=== PATIENT | female | born 1980 | race African-American/Black ===

== ENCOUNTER 2019-06-17 18:54 | Emergency (ER) | payer SELFPAY ==
[2019-06-18 05:01] LABS: ALBUMIN 3.9 g/dL (3.2-5.0); ALKALINE PHOSPHATASE 33 u/l (38-126); ANION GAP 12 (6-22 (CALC)); BILIRUBIN, TOTAL 0.3 mg/dL (0.0-1.4); BUN 8 mg/dL (7-17); BUN/CREATININE RATIO 12 (12-20 (CALC)); CARBON DIOXIDE 25 mmol/l (22-30); CHLORIDE 105 mmol/l (95-108); CREATININE 0.7 mg/dL (0.5-1.0); GFR > 60 ML/MIN (>=60 (CALC)); GFR FOR AFR.AMER. > 60 ML/MIN (>=60 (CALC)); MAGNESIUM 1.8 mg/dL (1.6-2.3); POTASSIUM 4.3 mmol/l (3.5-5.1); SGOT/AST 17 u/l (14-36); SODIUM 137 mmol/l (137-146); TOTAL PROTEIN 6.9 g/dL (6.3-8.2); TSH, 3RD GENERATION 1.11 uIU/mL (0.47 - 4.68)
[2019-06-18 05:24] LABS: HEMATOCRIT 36.5 % (37.0-47.0); HEMOGLOBIN 11.5 g/dl (12.0-16.0); IMMATURE GRANULOCYTES 0.2 % (0.0-5.0); MEAN CELL VOLUME 82.2 fL CALC (80.0-100.0); MEAN CORPUSCULAR HGB 25.9 pG CALC (26.0-32.0); MEAN CORPUSCULAR HGB CONC 31.5 g/L CALC (32.0-36.0); NEUT# 2.06 thou/uL (2.00-7.15); RED BLOOD COUNT 4.44 mill/uL (4.20-5.60); RED CELL DISTRI WIDTH 15.7 % (11.5-15.5)
[2019-06-18 05:54] LABS: URINE BILIRUBIN - DIPSTICK NEGATIVE (NEGATIVE); URINE BLOOD DIPSTICK LARGE (NEGATIVE); URINE COLOR YELLOW; URINE GLUCOSE - DIPSTICK NEGATIVE (NEGATIVE); URINE KETONE Negative (NEGATIVE); URINE LEUK ESTERASE NEGATIVE (NEGATIVE); URINE NITRITE - DIPSTICK NEGATIVE (Negative); URINE PROTEIN - DIPSTICK NEGATIVE (NEG-TRACE); URINE UROBILINOGEN - DIPSTICK 0.2 E.U./dL (0.2); URINE WBC 0-2 WBC/hpf (0-5)
[2019-06-18 05:55] LABS: URINE EPITHELIAL CELLS FEW EPI/hpf (0-FEW)
== END 2019-06-17 21:24 | disposition home or self-care (01) | DRG 880 ==
LOC: ED 19:43
PROVIDERS: Emergency Medicine
DX: F41.9 Anxiety disorder, unspecified (principal)

== ENCOUNTER 2020-07-26 11:05 | Emergency (ER) | payer MEDICAID ==
[~2020-07-26] VITALS: Ht 170.2 cm; Wt 110.0 kg
[2020-07-26] MEDS ORDERED: PRENATA3 PO (11:33)
[2020-07-26] MEDS ORDERED: FERRAPLUS 90 PO (11:34)
[2020-07-26 12:11] LABS: HEMATOCRIT 35.6 % (37.0-47.0); HEMOGLOBIN 11.4 g/dl (12.0-16.0); IMMATURE GRANULOCYTES 4.5 % (0.0-5.0); MEAN CELL VOLUME 85.8 fL CALC (80.0-100.0); MEAN CORPUSCULAR HGB 27.5 pG CALC (26.0-32.0); NEUT# 3.95 thou/uL (2.00-7.15); RED BLOOD COUNT 4.15 mill/uL (4.20-5.60); RED CELL DISTRI WIDTH 14.9 % (11.5-15.5)
[2020-07-26 12:15] LABS: URINE BILIRUBIN - DIPSTICK NEGATIVE (NEGATIVE); URINE BLOOD DIPSTICK MODERATE (NEGATIVE); URINE COLOR YELLOW; URINE GLUCOSE - DIPSTICK 100 mg/dL (NEGATIVE); URINE KETONE NEGATIVE (NEGATIVE); URINE LEUK ESTERASE NEGATIVE (NEGATIVE); URINE NITRITE - DIPSTICK NEGATIVE (Negative); URINE PH 6.5 (4.5-8.0); URINE PROTEIN - DIPSTICK TRACE mg/dL (NEG-TRACE); URINE SPECIFIC GRAVITY 1.025; URINE UROBILINOGEN - DIPSTICK 0.2 E.U./dL (0.2)
[2020-07-26 12:20] LABS: URINE EPITHELIAL CELLS MANY EPI/hpf (0-FEW)
[2020-07-26 12:25] LABS: ALBUMIN 3.4 g/dL (3.2-5.0); ALKALINE PHOSPHATASE 37 u/l (38-126); ANION GAP 11 (6-22 (CALC)); BILIRUBIN, TOTAL 0.4 mg/dL (0.0-1.4); BUN 5 mg/dL (7-17); BUN/CREATININE RATIO 11 (12-20 (CALC)); CARBON DIOXIDE 20 mmol/l (22-30); CHLORIDE 109 mmol/l (95-108); CREATININE 0.4 mg/dL (0.5-1.0); GFR > 60 ML/MIN (>=60 (CALC)); GFR FOR AFR.AMER. > 60 ML/MIN (>=60 (CALC)); POTASSIUM 3.7 mmol/l (3.5-5.1); SGOT/AST 28 u/l (14-36); SODIUM 136 mmol/l (137-146); TOTAL PROTEIN 6.3 g/dL (6.3-8.2)
[2020-07-26 15:16] VITALS: BP 106/53
== END 2020-07-26 15:35 | disposition home or self-care (01) ==
LOC: ED 11:05
PROVIDERS: Emergency Medicine
DX: O43.212 Placenta accreta, second trimester (principal); Z3A.22 22 weeks gestation of pregnancy

== ENCOUNTER 2020-09-09 22:10 | Emergency (ER) | payer MEDICAID ==
[~2020-09-09] VITALS: Ht 170.2 cm; Wt 97.0 kg
[~2020-09-09 22:10] MED LIST: FERRAPLUS 90 PO; PRENATA3 PO
[2020-09-09 23:11] LABS: HEMATOCRIT 34.2 % (37.0-47.0); HEMOGLOBIN 10.9 g/dl (12.0-16.0); IMMATURE GRANULOCYTES 2.9 % (0.0-5.0); MEAN CELL VOLUME 85.5 fL CALC (80.0-100.0); MEAN CORPUSCULAR HGB 27.3 pG CALC (26.0-32.0); MEAN CORPUSCULAR HGB CONC 31.9 g/dL CAL (32.0-36.0); NEUT# 6.56 thou/uL (2.00-7.15); RED CELL DISTRI WIDTH 14.5 % (11.5-15.5)
[2020-09-09 23:16] LABS: URINE BILIRUBIN - DIPSTICK NEGATIVE (NEGATIVE); URINE BLOOD DIPSTICK MODERATE (NEGATIVE); URINE COLOR YELLOW; URINE GLUCOSE - DIPSTICK NEGATIVE (NEGATIVE); URINE KETONE NEGATIVE (NEGATIVE); URINE LEUK ESTERASE NEGATIVE (NEGATIVE); URINE NITRITE - DIPSTICK NEGATIVE (Negative); URINE PROTEIN - DIPSTICK NEGATIVE (NEG-TRACE); URINE UROBILINOGEN - DIPSTICK 0.2 E.U./dL (0.2)
[2020-09-09 23:26] LABS: URINE SQUAMOUS EPITHELIAL CELL FEW EPI/hpf (0-FEW); URINE YEAST FEW hpf
[2020-09-09 23:34] LABS: AMYLASE 87 u/l (30-110); LIPASE 60 u/l (23-300)
[2020-09-09 23:49] LABS: ALBUMIN 3.5 g/dL (3.2-5.0); ALKALINE PHOSPHATASE 50 u/l (38-126); ANION GAP 13 (6-22 (CALC)); BILIRUBIN, TOTAL 0.5 mg/dL (0.0-1.4); BUN 6 mg/dL (7-17); BUN/CREATININE RATIO 14 (12-20 (CALC)); CARBON DIOXIDE 21 mmol/l (22-30); CHLORIDE 104 mmol/l (95-108); CREATININE 0.4 mg/dL (0.5-1.0); GFR > 60 ML/MIN (>=60 (CALC)); GFR FOR AFR.AMER. > 60 ML/MIN (>=60 (CALC)); SGOT/AST 18 u/l (14-36); SODIUM 133 mmol/l (137-146); TOTAL PROTEIN 6.4 g/dL (6.3-8.2)
[2020-09-09 23:50] LABS: POTASSIUM 4.5 mmol/l (3.5-5.1)
[2020-09-09] MEDS ORDERED: TRAMADOL HYDROC50 MG PO (23:59)
[2020-09-10 00:10] VITALS: BP 115/67
== END 2020-09-10 00:10 | disposition home or self-care (01) ==
LOC: ED 22:10
PROVIDERS: Family Medicine
DX: O26.899 Other specified pregnancy related conditions, unspecified trimester (principal); M54.5 Low back pain; O21.9 Vomiting of pregnancy, unspecified; Z3A.00 Weeks of gestation of pregnancy not specified

== ENCOUNTER 2020-12-30 10:47 | Emergency (ER) | payer MEDICAID ==
[~2020-12-30] VITALS: Ht 170.2 cm; Wt 73.0 kg
[~2020-12-30 10:47] MED LIST changes: +TRAMADOL HYDROC50 MG PO
[2020-12-30] MEDS ORDERED: SERTRALINE50 MG PO (11:39)
[2020-12-30 12:05] LABS: IMMATURE GRANULOCYTES 0.2 % (0.0-5.0); MEAN CELL VOLUME 82.4 fL CALC (80.0-100.0); MEAN CORPUSCULAR HGB 25.3 pG CALC (26.0-32.0); MEAN CORPUSCULAR HGB CONC 30.8 g/dL CAL (32.0-36.0); NEUT# 2.23 thou/uL (2.00-7.15); RED BLOOD COUNT 5.01 mill/uL (4.20-5.60); RED CELL DISTRI WIDTH 15.2 % (11.5-15.5)
[2020-12-30 12:06] LABS: HEMATOCRIT 41.3 % (37.0-47.0); HEMOGLOBIN 12.7 g/dl (12.0-16.0)
[2020-12-30 12:23] LABS: ALBUMIN 4.2 g/dL (3.2-5.0); ALKALINE PHOSPHATASE 65 u/l (38-126); ANION GAP 12 (6-22 (CALC)); BILIRUBIN, TOTAL 0.5 mg/dL (0.0-1.4); BUN 12 mg/dL (7-17); BUN/CREATININE RATIO 18 (12-20 (CALC)); CHLORIDE 102 mmol/l (95-108); CREATININE 0.6 mg/dL (0.5-1.0); GFR > 60 ML/MIN (>=60 (CALC)); GFR FOR AFR.AMER. > 60 ML/MIN (>=60 (CALC)); POTASSIUM 4.8 mmol/l (3.5-5.1); SGOT/AST 22 u/l (14-36); SODIUM 137 mmol/l (137-146); TOTAL PROTEIN 7.6 g/dL (6.3-8.2)
[2020-12-30 12:24] LABS: CARBON DIOXIDE 28 mmol/l (22-30)
[2020-12-30 14:18] LABS: URINE BILIRUBIN - DIPSTICK NEGATIVE (NEGATIVE); URINE BLOOD DIPSTICK LARGE (NEGATIVE); URINE COLOR YELLOW; URINE GLUCOSE - DIPSTICK NEGATIVE (NEGATIVE); URINE KETONE NEGATIVE (NEGATIVE); URINE LEUK ESTERASE NEGATIVE (NEGATIVE); URINE PH 5.5 (4.5-8.0); URINE PROTEIN - DIPSTICK NEGATIVE (NEG-TRACE); URINE UROBILINOGEN - DIPSTICK 0.2 E.U./dL (0.2)
[2020-12-30 14:19] LABS: URINE NITRITE - DIPSTICK NEGATIVE (Negative)
[2020-12-30 16:48] VITALS: BP 120/70
== END 2020-12-30 16:52 | disposition designated cancer center or children's hospital (05) ==
LOC: ED 10:47
PROVIDERS: Emergency Medicine
DX: F32.9 Major depressive disorder, single episode, unspecified (principal)
CPT/HCPCS: J2060

== ENCOUNTER 2021-05-22 10:54 | Emergency (ER) | payer MEDICAID ==
[~2021-05-22] VITALS: Ht 170.2 cm; Wt 93.6 kg
[~2021-05-22 10:54] MED LIST changes: +SERTRALINE50 MG PO
[2021-05-22] MEDS ORDERED: FEROSUL325 MG PO (11:42)
[2021-05-22] MEDS ORDERED: VITAMIN D PO (11:44)
[2021-05-22 11:59] LABS: HEMATOCRIT 36.5 % (37.0-47.0); HEMOGLOBIN 11.4 g/dl (12.0-16.0); IMMATURE GRANULOCYTES 0.2 % (0.0-5.0); MEAN CORPUSCULAR HGB 25.9 pG CALC (26.0-32.0); MEAN CORPUSCULAR HGB CONC 31.2 g/dL CAL (32.0-36.0); NEUT# 1.66 thou/uL (2.00-7.15); RED BLOOD COUNT 4.4 mill/uL (4.20-5.60); RED CELL DISTRI WIDTH 14.4 % (11.5-15.5)
[2021-05-22 12:05] LABS: ALBUMIN 4.2 g/dL (3.2-5.0); ALKALINE PHOSPHATASE 44 u/l (38-126); ANION GAP 10 (6-22 (CALC)); BILIRUBIN, TOTAL 0.6 mg/dL (0.0-1.4); BUN 8 mg/dL (7-17); BUN/CREATININE RATIO 12 (12-20 (CALC)); CARBON DIOXIDE 28 mmol/l (22-30); CHLORIDE 105 mmol/l (95-108); CREATININE 0.7 mg/dL (0.5-1.0); GFR > 60 ML/MIN (>=60 (CALC)); GFR FOR AFR.AMER. > 60 ML/MIN (>=60 (CALC)); SGOT/AST 22 u/l (14-36); SODIUM 138 mmol/l (137-146); TOTAL PROTEIN 7.5 g/dL (6.3-8.2)
[2021-05-22] MEDS ORDERED: TORADOL PO (13:54)
[2021-05-22] MEDS ORDERED: FLEXERIL5 M1 PO (13:54)
[2021-05-22 14:06] VITALS: BP 129/78
== END 2021-05-22 14:08 | disposition home or self-care (01) ==
LOC: ED 10:54
PROVIDERS: Emergency Medicine
DX: M54.6 Pain in thoracic spine (principal); D17.1 Benign lipomatous neoplasm of skin and subcutaneous tissue of trunk

== ENCOUNTER 2023-07-23 08:26 | Emergency (ER) | payer OTHER ==
[~2023-07-23] VITALS: Ht 167.6 cm; Wt 89.0 kg
[~2023-07-23 08:26] MED LIST changes: +FEROSUL325 MG PO; +FLEXERIL5 M1 PO; +MULTI VITAMIN1 TAB PO; +TORADOL PO; +VITAMIN D PO; +VITAMIN D1.25 MG PO
[2023-07-23 08:33] VITALS: BP 139/68
[2023-07-23 08:45] VITALS: BP 126/85
[2023-07-23 09:00] VITALS: BP 133/85
[2023-07-23 09:15] VITALS: BP 139/83
[2023-07-23] MEDS ORDERED: ZOFRAN4 MG/TAB PO (09:22)
[2023-07-23] MEDS ORDERED: TAM75CAP PO (09:22)
[2023-07-23 09:30] VITALS: BP 124/82
== END 2023-07-23 09:40 | disposition home or self-care (01) ==
LOC: ED 08:26
DX: J11.1 Influenza due to unidentified influenza virus with other respiratory manifestations (principal); Z20.822 Contact with and (suspected) exposure to COVID-19

== ENCOUNTER 2023-09-22 18:10 | Observation (INO) | payer BC, OTHER ==
[~2023-09-22] VITALS: Ht 167.6 cm; Wt 87.0 kg
[2023-09-22] VITALS (21 sets, daily range): BP systolic 98–137; BP diastolic 54–105
[~2023-09-22 18:10] MED LIST changes: +TAM75CAP PO; +ZOFRAN4 MG/TAB PO
--- NOTE | 2023-09-22 18:12 | NUR ---
ESTELA TO ROOM 12 VIA EMS
--- NOTE | 2023-09-22 18:15 | NUR ---
PATIENT COMMUNICATES HER HEADACHE FEELS WORSE SINCE HAVING TO CARE FOR HER CHILD BECUSE "IT WEARS HER OUT".
--- NOTE | 2023-09-22 18:41 | NUR ---
PATIENT PLACED ON TABLE FOR CTA AT THIS TIME
[2023-09-22 18:47] LABS: BASO% 0.4 % (0-3); EOS% 3.1 % (0-8); HEMATOCRIT 36.5 % (37.0-47.0); HEMOGLOBIN 11.5 g/dl (12.0-16.0); IMMATURE GRANULOCYTES 0.1 % (0.0-5.0); LYMPH% 41.9 % (15-41); MEAN CELL VOLUME 80.9 fL CALC (80.0-100.0); MEAN CORPUSCULAR HGB 25.5 pG CALC (26.0-32.0); MEAN CORPUSCULAR HGB CONC 31.5 g/dL CAL (32.0-36.0); NEUT# 3.35 thou/uL (2.00-7.15); NEUT% 46.5 % (42-76); RED BLOOD COUNT 4.51 mill/uL (4.20-5.60); RED CELL DISTRI WIDTH 14.7 % (11.5-15.5)
[2023-09-22 19:03] LABS: PROTHROMBIN TIME 9.9 SECONDS (9.0-12.5)
[2023-09-22 19:04] LABS: ALBUMIN 4.3 g/dL (3.2-5.0); ALKALINE PHOSPHATASE 48 u/l (38-126); ANION GAP 9 (6-22 (CALC)); BILIRUBIN, TOTAL 0.5 mg/dL (0.02-1.3); BUN 12 mg/dL (7-17); BUN/CREATININE RATIO 16 (12-20 (CALC)); CALCULATED LDLCHOLESTEROL 170 mg/dL (62-129 (CALC)); CARBON DIOXIDE 25 mmol/l (22-30); CHLORIDE 107 mmol/l (95-108); CHOLESTEROL HDL RATIO 5.5 (<4.4 (CALC)); CREATININE 0.8 mg/dL (0.5-1.0); GFR FOR AFR.AMER. > 60 ML/MIN (>=60 (CALC)); GFR OTHER RACES > 60 ML/MIN (>=60 (CALC)); HDL CHOLESTEROL 45 mg/dL (39.0-59.0); SGOT/AST 24 u/l (14-36); SODIUM 137 mmol/l (137-146); TOTAL CHOLESTEROL 246 mg/dl (0-199); TOTAL PROTEIN 7.6 g/dL (6.3-8.2); TOTAL TRIGLYCERIDES 153 mg/dl (0-149); VLDL CHOLESTROL 31 mg/dl (1-41 (CALC))
--- NOTE | 2023-09-22 19:05 | NUR ---
REPORT TO JAGDEEP SINGH
[2023-09-22] MEDS ORDERED: ASPIRIN 81 MG/TAB PO ONE (19:45)
[2023-09-22] MEDS ORDERED: FAMOTIDINE 20 MG/TAB PO SCH (21:20)
[2023-09-22] MEDS ORDERED: DEXTROSE 250 ML IV PRN (21:20)
--- NOTE | 2023-09-22 21:21 | NUR ---
PATIENT PUT BULK SAUSAGE CASING TIER OFF LIGHT TO CALL. UPON ARRIVING INTO ROOM THE ROOM. PATIENT HAD EYES CLOSE AND WILL NOT RESPOND TO NURSE. AT THIS TIME SHE HAD HER FINGER HOLDING DOWN THE CALL BUTTON. SHE ALSO HAS SOME FAMILY MEMBER ON FACETIME AT THIS TIME. PATIENT REFUSES TO ANSWER ANY QUESTIONS.
--- NOTE | 2023-09-22 21:35 | NUR ---
PATIENT CALLED AGAIN STATING SHE CANNOT BE IN THE ROOM BY HERSELF. THAT SHE FEELS LIKE SHE IS OK ONE MINUTE AND THE NEXT SHE FEELS IF SHE IS LOSING HERSELF. SHE STATED SHE WANTS SOMEONE TO STAY IN THE ROOM WITH HER AT ALL TIMES BECAUSE SHE DOES NOT FEEL WELL AND SHE WANTS TO GO [facility].
--- NOTE | 2023-09-22 21:38 | NUR ---
IN DEPTH CONVERSATION HAD WITH PATIENT TO WHY IT WOULD NOT BENEFIT HER TO LEAVE AGAINST MEDICAL ADVISE.
[2023-09-23] VITALS (68 sets, daily range): BP systolic 92–134; BP diastolic 45–88
[2023-09-23 04:43] LABS: BASO% 0.5 % (0-3); EOS% 2.8 % (0-8); HEMOGLOBIN 11.3 g/dl (12.0-16.0); IMMATURE GRANULOCYTES 0.2 % (0.0-5.0); LYMPH% 45.2 % (15-41); MEAN CELL VOLUME 80.9 fL CALC (80.0-100.0); MEAN CORPUSCULAR HGB 25.4 pG CALC (26.0-32.0); MEAN CORPUSCULAR HGB CONC 31.4 g/dL CAL (32.0-36.0); MONO% 9.5 % (2-13); NEUT# 2.38 thou/uL (2.00-7.15); NEUT% 41.8 % (42-76); RED BLOOD COUNT 4.45 mill/uL (4.20-5.60); RED CELL DISTRI WIDTH 14.7 % (11.5-15.5)
[2023-09-23 05:04] LABS: ANION GAP 8 (6-22 (CALC)); BUN 8 mg/dL (7-17); BUN/CREATININE RATIO 12 (12-20 (CALC)); CALCULATED LDLCHOLESTEROL 161 mg/dL (62-129 (CALC)); CARBON DIOXIDE 26 mmol/l (22-30); CHLORIDE 109 mmol/l (95-108); CHOLESTEROL HDL RATIO 4.9 (<4.4 (CALC)); CREATININE 0.7 mg/dL (0.5-1.0); GFR FOR AFR.AMER. > 60 ML/MIN (>=60 (CALC)); GFR OTHER RACES > 60 ML/MIN (>=60 (CALC)); HDL CHOLESTEROL 46 mg/dL (39.0-59.0); POTASSIUM 4.4 mmol/l (3.5-5.1); SODIUM 137 mmol/l (137-146); TOTAL CHOLESTEROL 227 mg/dl (0-199); TOTAL TRIGLYCERIDES 97 mg/dl (0-149); VLDL CHOLESTROL 19 mg/dl (1-41 (CALC))
[2023-09-23 05:14] LABS: C-REACTIVE PROTEIN < 0.5 mg/dL (0-0.9)
[2023-09-23] MEDS ORDERED: INSULIN LISPRO 100 UNITS/ML ML SC SCH (07:00)
[2023-09-23] MEDS ORDERED: ASPIRIN 325 MG/TAB PO SCH (09:00)
--- NOTE | 2023-09-23 09:17 | NUR ---
PATIENT ARRIVED TO UNIT VIA STRETCHER FROM ER HOLDING. AT BEDSIDE. PATIENT ALERT AND ORIENTED X 4. C/0 MENESES PAIN OF A 4, BUT DECLINES PAIN RELIEF MEASURES AT THIS TIME. BREATHING EVEN AND UNLABORED ON ROOM AIR. LUNGS CLEAR TO ASCULTATION. STATED LAST BM 09/22. STRONG PERIPHERAL/PEDAL PULSES. PATIENT ORIENTED TO ROOM. SAFETY MEASURES IN PLACE INCLUDING BED IN LOW POSITION AND CALL LIGHT RESTING NEXT TO L HAND. NO APPARENT DISTRESS NOTED. WILL CONTINUE WITH PLAN OF CARE.
[2023-09-23] MEDS ORDERED: SERTRALINE HCL 50 MG/TAB PO SCH (10:00)
--- NOTE | 2023-09-23 12:06 | NUR ---
PATIENT UP IN BED FOR LUNCH. STATES SHE STILL HAS MENESES PAIN OF 4, BUT DECLINES RELIEF MEASURES AT THIS TIME. NO APPARENT DISTRESS NOTED. WILL CONTINUE WITH PLAN OF CARE.
--- NOTE | 2023-09-23 12:38 | NUR ---
PATIENT TAKEN TO MRI VIA WC
[2023-09-23] MEDS ORDERED: IBUPROFEN 600 MG/TAB PO PRN (13:45)
--- NOTE | 2023-09-23 14:21 | NUR ---
PATIENT SITTING UP IN BED. SR ON THE MONITOR. NO APPARENT DISTRESS NOTED. WILL CONTINUE WITH PLAN OF CARE.
--- NOTE | 2023-09-23 16:31 | NUR ---
PATIENT APPEARS TO BE RESTING WITH EYES CLOSED. SR ON THE MONITOR. NO APPARENT DISTRESS NOTED. WILL CONTINUE WITH PLAN OF CARE.
--- NOTE | 2023-09-23 18:17 | NUR ---
PATIENT SITTING UP IN BED EATING DINNER. DENIES ANY ISSUES OR CONCERNS AT THIS TIME. NO APPARENT DISTRESS NOTED. WILL CONTINUE WITH PLAN OF CARE.
[2023-09-23] MEDS ORDERED: IBUPROFEN600 MG PO (18:33)
[2023-09-23] MEDS ORDERED: ATORVASTATIN CA40 MG PO (18:35)
[2023-09-23] MEDS ORDERED: ENTERIC COATED325 MG PO (18:36)
[2023-09-23] MEDS ORDERED: ATORVASTATIN CALCIUM 40 MG/TAB PO SCH (21:00)
== END 2023-09-23 19:52 | disposition home or self-care (01) | DRG 103 ==
LOC: ED 18:10 → ED-I 20:10 → ED 23:37 → ED-I 23:37 → ICU 09-23 07:24
PROVIDERS: Emergency Medicine; ADMIT Student in an Organized Health Care Education/Training Program; ATTEND Student in an Organized Health Care Education/Training Program
DX: G44.89 Other headache syndrome (principal); R42 Dizziness and giddiness; R20.0 Anesthesia of skin; R20.2 Paresthesia of skin; I10 Essential (primary) hypertension
CPT/HCPCS: Q9967